=== PATIENT | female | born 1995 | race Caucasian/White ===

== ENCOUNTER 2025-02-25 10:00 | Emergency (ER) | payer SELFPAY ==
[~2025-02-25] VITALS: Ht 162.6 cm; Wt 100.7 kg
[2025-02-25 10:15] VITALS: BP 154/92; PULSE 85; RESP 18; TEMP 98.1; O2SAT 100
[2025-02-25 10:30] LABS: LEUKOCYTE ESTERASE ,URINE TRACE (NEGATIVE); NITRATE,URINE POSITIVE (NEGATIVE)
[2025-02-25 10:42] LABS: APPEARANCE,URINE HAZY; UA COLOR YELLOW
[2025-02-25 11:09] VITALS: BP 146/87; PULSE 62; RESP 18; O2SAT 99
[2025-02-25] MEDS ORDERED: CEPH500T PO (11:22)
[2025-02-25 11:26] VITALS: BP 130/78; PULSE 65; RESP 18; O2SAT 98
== END 2025-02-25 11:26 | disposition home or self-care (01) ==
LOC: ER 10:00
DX: O23.41 Unspecified infection of urinary tract in pregnancy, first trimester (principal); N39.0 Urinary tract infection, site not specified; Z3A.01 Less than 8 weeks gestation of pregnancy
CPT/HCPCS: 81001; 81025; 87077; 87086; 87186; 99283